=== PATIENT | female | born 1995 | race Caucasian/White ===

== ENCOUNTER 2017-09-22 00:26 | Emergency (ER) | payer OTHER ==
[~2017-09-22] VITALS: Ht 160 cm; Wt 94.9 kg
[2017-09-22] MEDS ORDERED: KEFLEX500 MG PO (01:57)
[2017-09-22] MEDS ORDERED: NAPROXEN500 MG PO (01:57)
[2017-09-22 02:17] VITALS: BP 117/78
== END 2017-09-22 02:17 | disposition home or self-care (01) ==
LOC: EME 00:26
DX: K02.9 Dental caries, unspecified (principal); F17.200 Nicotine dependence, unspecified, uncomplicated; Z90.49 Acquired absence of other specified parts of digestive tract
CPT/HCPCS: 99281; 99283